=== PATIENT | female | born 1940 | race Caucasian/White ===

== ENCOUNTER → 2016-07-10 | Outpatient (CLI) | payer MEDICARE, OTHER ==
[2016-07-10 14:13] LABS: Basophils % (A) 0 %; CH 29.4; CHCM 32.3; Eosinophils % (A) 1 %; HCT 41.7 % (34.0-46.0); HDW 2.34; HGB 13.7 gm/dL (11.4-16.0); Luc # (Auto) 0.14; Luc % (Auto) 2; Lymphocytes # (A) 1.8 k/uL (1.0-4.8); Lymphocytes % (A) 24 %; MCHC 32.9 g/dL (31.0-37.0); MCV 91.3 fL (80.0-100.0); Mean Platelet Volume 6.6; Monocytes # (A) 0.3 k/uL (0-1.0); Monocytes % (A) 3 %; Neutrophils # (A) 5.2 k/uL (1.3-7.7); Neutrophils % (A) 70 %; RBC 4.57 m/uL (3.80-5.40); RDW 12.5 % (11.5-15.5); WBC 7.5 k/uL (3.8-10.6); WBC (Perox) 8.13
[2016-07-10 14:18] LABS: INR 1.1 (<1.1); Partial Thromboplastin Time 23.5 sec (22.0-30.0); Prothrombin Time 10.7 sec (9.0-12.0)
[2016-07-10 14:37] LABS: ALT 21 U/L (9-52); AST 19 U/L (14-36); Alkaline Phosphatase 78 U/L (38-126); Anion Gap 15 mmol/L; Blood Urea Nitrogen 22 mg/dL (7-17); Calcium 10.2 mg/dL (8.4-10.2); Carbon Dioxide 23 mmol/L (22-30); Chloride 101 mmol/L (98-107); Glucose 99 mg/dL (74-99); Non-African American GFR(MDRD) >60 (>60 ml/min/1.73 sqM); Potassium 4.4 mmol/L (3.5-5.1); Sodium 139 mmol/L (137-145); Total Bilirubin 0.9 mg/dL (0.2-1.3); Total Protein 7.2 g/dL (6.3-8.2)
[2016-07-10 14:46] LABS: Appearance,Urine Clear (Clear); Bilirubin,Urine Negative (Negative); Glucose,Urine (UA) Negative (Negative); Ketones,Urine Negative (Negative); Leukocyte Esterase,Urine Small (Negative); Nitrite,Urine Negative (Negative); PH, Urine 6.5 (5.0-8.0); Particle Count 608; Protein,Urine Negative (Negative); Specific Gravity,Urine 1.007 (1.001-1.035); Squamous Epithelial Cell,Urine <1 /hpf (0-4); UA Billing (MACRO vs. MICRO) MICRO; Urobilinogen,Urine <2.0 mg/dL (<2.0); WBC,Urine 1 /hpf (0-5)
== END | disposition home or self-care (01) ==
LOC: LABPAT 13:41
PROVIDERS: ATTEND Orthopaedic Surgery
DX: Z01.812 Encounter for preprocedural laboratory examination (principal)
CPT/HCPCS: 80053; 81001; 85025; 85610; 85730; 87070

== ENCOUNTER 2016-07-28 06:03 | Inpatient (IN) | payer MEDICARE, OTHER ==
[2016-07-13 15:50] VITALS: BMI 30.2
[~2016-07-28 06:03] MED LIST: DEXAMETHASONE SOD PHOSPHATE 10 MG/ML 1 ML VIAL IV ONE; FAMOTIDINE 20 MG/2 ML VIAL IV PRN; LIDOCAINE 1% 20 ML VIAL (10MG/ML) FOR IV START INTRADERMA PRN; MIDAZOLAM 2 MG/2 ML VIAL IV PRN; ONDANSETRON 4 MG/2 ML VIAL IVP ONE; ceFAZolin 2 GM in SODIUM CHLORIDE 0.9% 100 ML IVPB ONE
[2016-07-28] MEDS: LACTATED RINGERS 1,000 ML IV SCH ×3 (07:00→20:47)
[2016-07-28] MEDS: VANCOMYCIN 1,250 MG in SODIUM CHLORIDE 0.9% 250 ML IVPB ONE ×2 (07:05→07:19)
[2016-07-28] MEDS ORDERED: MIDAZOLAM 2 MG/2 ML VIAL IVP ONE (09:44)
[2016-07-28] MEDS ORDERED: ePHEDrine 50 MG/ML 1 ML AMP ONE (10:26)
[2016-07-28] MEDS ORDERED: fentaNYL (PF) 50 MCG/ML 2 ML AMP ONE (10:26)
[2016-07-28] MEDS ORDERED: PHENYLEPHRINE-0.9% NACL SYG 1 MG/10 ML SYRINGE ONE (10:26)
[2016-07-28] MEDS ORDERED: PROPOFOL 10 MG/ML 20 ML VIAL IV ONE (10:26)
[2016-07-28] MEDS ORDERED: HYDROmorphone (PF) 1 MG/ML ONE (10:26)
[2016-07-28] MEDS ORDERED: LIDOCAINE 1% INJ 10MG/ML (20 ML MDV) ONE (10:26)
[2016-07-28] MEDS ORDERED: MIDAZOLAM 2 MG/2 ML VIAL ONE (10:26)
[2016-07-28] MEDS ORDERED: SUCCINYLCHOLINE CHLORIDE 100 MG/5 ML SYR IV ONE (10:26)
[2016-07-28] MEDS ORDERED: LACTATED RINGERS 1,000 ML IV ONE ×2 (11:06→12:16)
[2016-07-28] MEDS ORDERED: ceFAZolin 3,000 MG in SODIUM CHLORIDE 0.9% IRRIGATIO 3,000 ML IRRIGATION ONE (11:16)
[2016-07-28] MEDS ORDERED: TEMAZEPAM 15 MG CAP PO PRN (12:43)
[2016-07-28] MEDS ORDERED: HYDROmorphone 1 MG/ML 1 ML SYRINGE IVP PRN ×2 (12:43)
[2016-07-28] MEDS ORDERED: BISACODYL 10 MG SUPP RECTAL PRN (12:43)
[2016-07-28] MEDS ORDERED: MAGNESIUM HYDROXIDE 2,400 MG/10 ML CUP PO PRN (12:43)
[2016-07-28] MEDS ORDERED: HYDROcodone/APAP 10-325MG 1 EACH TAB PO PRN (12:43)
[2016-07-28] MEDS ORDERED: NA PHOS,M-B/NA PHOS,DI-BA 133 ML ENEMA RECTAL PRN (12:43)
[2016-07-28] MEDS ORDERED: NALOXONE 0.4 MG/ML 1 ML VIAL IV PRN (12:43)
[2016-07-28] MEDS ORDERED: ONDANSETRON 4 MG/2 ML VIAL IVP PRN (12:43)
--- NOTE | 2016-07-28 13:07 | XR ---
Right knee HISTORY: Status post right knee arthroplasty 2 views of the right knee No comparisons Patient is status post right knee arthroplasty. There is anatomic alignment. Lucency present in the s oft tissues compatible with postop state. Bone mineralization is reduced. IMPRESSION: Orthopedic follow-up
[2016-07-28] MEDS: HYDROmorphone 1 MG/ML 1 ML SYRINGE IVP PRN ×4 (13:44→20:44)
[2016-07-28] MEDS: ceFAZolin 2 GM in SODIUM CHLORIDE 0.9% 100 ML IVPB SCH (15:48)
[2016-07-28] MEDS ORDERED: WARFARIN 5 MG TAB PO ONE (18:00)
[2016-07-28] MEDS: SENNOSIDES-DOCUSATE SODIUM 1 EACH TAB PO SCH (20:37)
[2016-07-28] MEDS: DULoxetine HCL 60 MG CAPSULE.DR PO SCH (20:43)
[2016-07-28] MEDS: PRAMIPEXOLE 0.5 MG TAB PO SCH (20:43)
[2016-07-28] MEDS: AMITRIPTYLINE HCL 50 MG TAB PO SCH (20:43)
[2016-07-28] MEDS: HYDROcodone/APAP 10-325MG 1 EACH TAB PO PRN (22:29)
[2016-07-29] MEDS: LACTATED RINGERS 1,000 ML IV SCH ×4 (00:54→20:16)
[2016-07-29] MEDS: ceFAZolin 2 GM in SODIUM CHLORIDE 0.9% 100 ML IVPB SCH (00:55)
[2016-07-29] MEDS: hydrOXYzine PAMOATE 25 MG CAP PO PRN ×3 (04:56→21:08)
[2016-07-29] MEDS: HYDROcodone/APAP 10-325MG 1 EACH TAB PO PRN ×4 (04:56→21:08)
[2016-07-29] MEDS: PANTOPRAZOLE 40 MG TABLET PO SCH (08:07)
[2016-07-29] MEDS: DULoxetine HCL 60 MG CAPSULE.DR PO SCH ×2 (08:07→20:00)
--- NOTE | 2016-07-29 08:10 | P.PN ---
Subjective Principal diagnosis: Status post right total knee arthroplasty This is a 75 year-old female post total knee arthroplasty. This is post-op day 1. The patient was evaluated at the bedside today. The patient denies nausea, vomiting, abdominal pain, shortness of breath, and chest pain this morning. She states her pain is controlled at this time. The patient has not been up with physical therapy yet this morning. Objective - Vital Signs Vital signs: Vital Signs Temp 98.6 F 07/29/16 07:41 Pulse 102 H 07/29/16 07:41 Resp 16 07/29/16 07:41 BP 146/76 07/29/16 07:41 Pulse Ox 94 L 07/29/16 07:41 Intake & Output 07/28/16 07/29/16 07/29/16 18:59 06:59 18:59 Intake Total 5650 450 Output Total 425 1400 Balance 5225 -950 Weight 74.847 kg Intake: IV 5650 Oral 450 Output: Urine 375 1400 Uretheral (Flores) 1400 Estimated Blood Loss 50 Other: Voiding Method Indwelling Catheter Indwelling Catheter - Exam The patient does not appear in acute distress. Alert and orientated x3. Dressing is clean dry and intact. Incision appears fine with no erythema or active drainage. Calf is soft and nontender. Good foot and ankle motion without difficulty. Sensation and circulatory status is intact. Assessment and Plan (1) Primary localized osteoarthritis of right knee Status: Acute (2) Status post right knee replacement Status: Acute Plan: 1. Continue pain control 2. Anticoagulation with Coumadin per protocol 3. Start physical therapy and ambulation 4. Anticipate discharge home with homecare on Wednesday.
[2016-07-29 08:13] LABS: INR 1.7 (<1.1); Prothrombin Time 16.8 sec (9.0-12.0)
[2016-07-29 08:27] LABS: Basophils % (A) 0 %; CH 28.8; CHCM 31.6; Eosinophils % (A) 0 %; HCT 31.9 % (34.0-46.0); Luc # (Auto) 0.13; Luc % (Auto) 2; Lymphocytes # (A) 1.7 k/uL (1.0-4.8); Lymphocytes % (A) 20 %; MCH 30.8 pg (25.0-35.0); MCHC 33.6 g/dL (31.0-37.0); MCV 91.7 fL (80.0-100.0); Mean Platelet Volume 6.8; Monocytes # (A) 0.5 k/uL (0-1.0); Monocytes % (A) 6 %; Neutrophils % (A) 72 %; RBC 3.48 m/uL (3.80-5.40); RDW 12.8 % (11.5-15.5); WBC 8.4 k/uL (3.8-10.6); WBC (Perox) 8.59
[2016-07-29 08:33] LABS: HGB 10.7 gm/dL (11.4-16.0)
[2016-07-29] MEDS: HYDROmorphone 1 MG/ML 1 ML SYRINGE IVP PRN ×2 (09:28→19:47)
[2016-07-29] MEDS: CHOLECALCIFEROL 1,000 UNIT TAB PO SCH (10:10)
--- NOTE | 2016-07-29 15:20 | CONS ---
DATE OF CONSULTATION: 07/29/2016 Reason for consultation is medical management requested by Dr. Russ. CONSULTATION: This is a very pleasant 75-year-old patient of Dr. Galeas who has undergone a right total knee arthroplasty. Postprocedure, pain is present in the right knee. No chest pain, short of breath, no nausea, vomiting, no dizziness. Patient did tolerate her breakfast. Patient's chronic stable medical conditions include fibromyalgia, GERD, hyperlipidemia, and arthritis of the left knee, sitting up in the bed. REVIEW OF SYSTEMS: CONSTITUTIONAL: None. HEENT: None. RESPIRATORY: None. CARDIOVASCULAR: None. GASTROINTESTINAL: Heartburn. GENITOURINARY: None. MUSCULOSKELETAL: Pain in the joints. DERMATOLOGICAL: None. HEMATOLOGICAL: None. LYMPHATIC: None. PSYCHIATRY: None. NEUROLOGICAL: None. Past history of fibromyalgia, GERD, hyperlipidemia, osteoarthritis, esophageal ulcer. PAST SURGICAL HISTORY: Appendectomy, back surgery, breast surgery, cholecystectomy, hysterectomy, jaw surgery, ( ), back fusion, tendon relief left wrist, several breast biopsies, breast augmentation. SOCIAL HISTORY: No smoking. Alcohol rarely. . Family history of stroke. HOME MEDICATIONS: Zocor 20 mg q.48 hours, Mirapex 0.5 mg p.o. q.h.s., Prilosec 20 mg p.o. with breakfast, [place] 10 one tablet q.6 p.r.n., Cymbalta 60 mg p.o. b.i.d., vitamin D3 two thousand units p.o. daily, Fiorinal 1 to 2 capsules p.o. q.4 p.r.n., Elavil 100 mg p.o. q.h.s. Allergies to CLARITHROMYCIN, RELPAX, GABAPENTIN, MECLOMEN, STADOL, LYRICA, REQUIP. some of these just side effects. On examination, temperature 98.6, pulse 102, respirations 16, blood pressure 146/76, pulse ox 94% on room air. GENERAL APPEARANCE: Average build, lying in bed, not in distress. EYES: Pupils equal. Conjunctivae normal. HEENT: Oral cavity normal. NECK: JVD not raised. Mass not palpable. Respiratory effort normal. Lungs are clear. CARDIOVASCULAR: First and second sounds normal. No edema. ABDOMEN: Soft, nontender. Liver and spleen not palpable. LYMPHATIC: No lymph node palpable in neck or axillae. PSYCHIATRY: Alert and oriented x3. Mood and affect normal. NEUROLOGICAL: Pupils equal. Cranial nerves grossly intact. Power and sensation grossly intact. EXTREMITIES: Right knee in a dressing. MUSCULOSKELETAL: There was also evidence of osteoarthritis in the hands. INVESTIGATIONS: White count 8.4, hemoglobin 10.7. Patient's hemoglobin was 13.7 on 07/10/2016. ASSESSMENT: 1. Right total knee arthroplasty. 2. Chronic fibromyalgia. 3. Gastroesophageal reflux disease. 4. Hyperlipidemia. 5. Primary osteoarthritis in multiple joints, bilateral including the hands. 6. Chronic esophageal ulcer. 7. Acute postoperative blood loss anemia as expected from surgery. 8. Chronic insomnia, idiopathic. 9. Restless leg syndrome. PLAN: Home medications are resumed. DVT prophylaxis, Coumadin as per Dr. uRss. Care was discussed with the patient. Thank you, Dr. Russ.
[2016-07-29] MEDS ORDERED: WARFARIN 5 MG TAB PO ONE (18:00)
--- NOTE | 2016-07-29 18:08 | OP ---
DATE OF SERVICE: 07/28/2016 SURGEON: MIKE HENDRIX DO ASSISTANT PLANT CONTROL OPERATOR: Dipti Rey PA-C PREOPERATIVE DIAGNOSIS: Degenerative joint disease of the right knee. POSTOPERATIVE DIAGNOSIS: Degenerative joint disease of the right knee. OPERATION: Right total knee replacement arthroplasty utilizing [employer] Persona press fit components. ANESTHESIA: PROCEDURE: Patient was taken to the operative suite and placed in supine position. General inhalation anesthesia was performed by the department of anesthesiology. Betadine prep was carried out from mid thigh to mid calf. Sterile drapes were applied in the usual manner. The pneumatic tourniquet was inflated and the medial parapatellar incision was developed. Medial retinaculum was incised. The patella was dislocated and everted laterally and held in a leg santaigo. The intramedullary cutting guide and jig were utilized for appropriate cuts in preparation for a size 5 femoral. Appropriate femoral cuts were then developed. Provisional component was impacted into position. Alignment and stability are noted. Excellent alignment of bone component interface was noted. A tibial cutting guide was brought into position. Appropriate wafer cut was performed. The menisci, both medial and lateral were excised. Tibial tray was selected. The tray was marked for position. Appropriate peg holes were drilled. A 10 mm provisional spacer was inserted and stability noted. The patella was everted, a shelving planer was utilized in preparing for a selected size 32 mm component was selected. Trial component were removed in preparation for final components. With the knee in flexion position, a size 5 right femoral component was impacted in position. The final component were placed in pre-drilled peg holes and impacted. Final size 10 mm polyethylene plate was then inserted and locked into the tibial tray in position. Pneumatic tourniquet was deflated. The knee was irrigated again with pulsavac antibiotic solution. All the superficial bleeding was controlled with electrocautery. Medial retinaculum was reapproximated with #3 Vicryl suture in horizontal mattress fashion. A #2 Quill suture was used for the retinaculum reinforcement. Vicryl 2-0 suture was utilized in approximating the closure of subcutaneous tissue. #3 Quill suture was utilized in subcuticular closure. Dermabond was utilized in sealing the wound. Betadine and sterile pressure dressing was applied. The patient was transferred to the recovery room in satisfactory postoperative condition. GROSS PATHOLOGY: Degenerative joint disease of the right knee. MTDD
[2016-07-29] MEDS: SENNOSIDES-DOCUSATE SODIUM 1 EACH TAB PO SCH (19:54)
[2016-07-29] MEDS: PRAMIPEXOLE 0.5 MG TAB PO SCH (20:00)
[2016-07-29] MEDS: AMITRIPTYLINE HCL 50 MG TAB PO SCH (20:00)
[2016-07-29] MEDS ORDERED: ATORVASTATIN 10 MG TAB PO SCH (21:00)
[2016-07-30] MEDS: hydrOXYzine PAMOATE 25 MG CAP PO PRN ×2 (05:24→13:27)
[2016-07-30] MEDS: HYDROcodone/APAP 10-325MG 1 EACH TAB PO PRN ×2 (05:24→13:27)
[2016-07-30 07:24] VITALS: BP 109/60; PULSE 109; RESP 15; TEMP 99.1
[2016-07-30 07:24] LABS: INR 2.1 (<1.1)
[2016-07-30] MEDS: CHOLECALCIFEROL 1,000 UNIT TAB PO SCH (08:29)
[2016-07-30] MEDS: DULoxetine HCL 60 MG CAPSULE.DR PO SCH (08:29)
[2016-07-30] MEDS: PANTOPRAZOLE 40 MG TABLET PO SCH (08:29)
--- NOTE | 2016-07-30 21:14 | PN ---
DATE OF SERVICE: 07/30/2016 PRESENTING COMPLAINT: Right knee surgery. INTERVAL HISTORY: This patient was seen by me earlier today; doing well. Pain is better controlled. Did work with Physical Therapy. Tolerated her diet. Review of systems done for constitutional, cardiovascular, GI, pulmonary; relevant findings as above. Current medications are reviewed. On examination, temperature 99.1, pulse 109, respiration 15, blood pressure 109/60, pulse ox 94% on room air. GENERAL APPEARANCE: Sitting up, comfortable. EYES: Pupils equal. Conjunctivae normal. NECK: JVD not raised. Mass not palpable. RESPIRATORY: Effort normal. Lungs are clear. CARDIOVASCULAR: First and second sounds normal. No edema. ABDOMEN: Soft, nontender. Liver and spleen not palpable. PSYCHIATRY: Alert and oriented x3. Mood and affect normal. INVESTIGATIONS: Pro time noted. ASSESSMENT: 1. Right total knee arthroplasty. 2. Chronic fibromyalgia. 3. Gastroesophageal reflux disease. 4. Hyperlipidemia. 5. Primary osteoarthritis of multiple joints bilaterally, including the hands. 6. Chronic esophageal ulcer. 7. Acute postoperative blood loss anemia, as expected from surgery. 8. Chronic insomnia, idiopathic. 9. Restless leg syndrome. PLAN: Patient is stable. Continue current medication and treatment plan. Thank you, Dr. Russ.
--- NOTE | 2016-07-31 09:44 | P.DS ---
Providers Date of admission: 07/28/16 06:03 Expected date of discharge: 07/30/16 Attending physician: Cecilio Russ Consults: 07/28/16 12:43 Consult Physician Routine Consulting Provider: Guilherme Mann Consult Reason/Comments: medical management Do you want consulting provider notified?: Yes Primary care physician: Mahendra Galeas - Discharge Diagnosis(es) (1) Primary localized osteoarthritis of right knee Status: Acute (2) Status post right knee replacement Status: Acute Hospital Course: This is a 75 year-old female last seen in our office with complaints of right knee pain. The patient has a known history of degenerative arthritis of the right knee and presented to discuss options. After discussion and consideration the patient elected to proceed with a right total knee arthroplasty. The patient was seen preoperatively by Dr. Galeas and cleared for surgery. The patient was admitted to [facility] on 07/28/2016 and underwent a right total knee arthroplasty by Dr. Russ. The procedure was performed without complications or sequelae. The patient was seen and evaluated at bedside today. The patient's pain is well-controlled. The patient has no new complaints today denies any fevers, chills, nausea, vomiting, or shortness of breath. Vital signs are stable. The dressing is clean, dry and intact. Incision looks fine with no erythema or active drainage. Calf is soft and nontender. The patient has full ankle motion without difficulty. The patient' s right lower extremity is neurovascularly intact. The patient is orthopedically stable for discharge home with homecare today in good condition. Pertinent Studies: Laboratory Tests 07/29/16 07/30/16 07:25 07:08 WBC 8.4 RBC 3.48 L Hgb 10.7 L D Hct 31.9 L PT 20.0 H INR 2.1 Patient Condition at Discharge: Stable Plan - Discharge Summary New Discharge Prescriptions: Aspirin 325 mg PO DAILY #30 tab HYDROcodone/APAP 10-325MG [[place] 10-325] 1 - 2 tab PO Q4-6H PRN #90 tab PRN Reason: Pain Sennosides-Docusate Sodium [Senokot-S] 2 tab PO DAILY #30 tablet Warfarin [Coumadin] 2.5 mg PO DIRECTED #30 tab Discharge Medication List Amitriptyline HCl [Elavil] 100 mg PO HS 07/13/16 [History] Butalb/Asprin/Caff 50-325-40Mg [Fiorinal 50-325-40 MG] 1 - 2 cap PO Q4HR PRN [History] Cholecalciferol [Vitamin D3] 2,000 unit PO DAILY 07/13/16 [History] DULoxetine HCL [Cymbalta] 60 mg PO BID 07/13/16 [History] HYDROcodone/APAP 10-325MG [[place] 10-325] 1 tab PO Q6H PRN 07/13/16 [History] Omeprazole [PriLOSEC] 20 mg PO AC-BRKFST 07/13/16 [History] Pramipexole [Mirapex] 0.5 mg PO HS 07/13/16 [History] Simvastatin [Zocor] 20 mg PO Q48H 07/13/16 [History] Aspirin 325 mg PO DAILY #30 tab 07/30/16 [Rx] HYDROcodone/APAP 10-325MG [[place] 10-325] 1 - 2 tab PO Q4-6H PRN #90 tab [Rx] Sennosides-Docusate Sodium [Senokot-S] 2 tab PO DAILY #30 tablet 07/30/16 [Rx] Warfarin [Coumadin] 2.5 mg PO DIRECTED #30 tab 07/30/16 [Rx] Follow up Appointment(s)/Referral(s): Cecilio Russ DO [Doctor of Osteopathic Medicine] - 08/11/16 1:30 pm [facility], [NON-STAFF] - 1 Week Ambulatory/Diagnostic Orders: Continuous Passive Motion (CPM) Machine [DME.AMB1] Time Frame: 3 Weeks, Location : Determined By Patient Patient Instructions/Handouts: Knee Replacement (DC) Activity/Diet/Wound Care/Special Instructions: Weightbearing as tolerated with a walker Coumadin 2.5 mg 1 by mouth every other day for 7 days then take Aspirin 325mg daily for 1 month CPM 5-6 hours daily May shower in 3 days if no drainage from incision Keep incision clean and dry Coumadin diet Call [facility] [phone] with questions or concerns Call [facility] when you get home to get your CPM delivered to your house 1- [phone] Discharge Disposition: HOME WITH HOME HEALTH SERVICES
== END 2016-07-30 15:50 | disposition home health service (06) | DRG 470 ==
LOC: 2ORMAIN 06:03 → 3SUR 12:39
PROVIDERS: ADMIT Orthopaedic Surgery; ATTEND Orthopaedic Surgery
PROC: 0SRC0JA Replacement of Right Knee Joint with Synthetic Substitute, Uncemented, Open Approach (ICD-10-PCS; principal; 2016-07-28 08:40)
DX: M17.0 Bilateral primary osteoarthritis of knee (principal); D62 Acute posthemorrhagic anemia; K22.10 Ulcer of esophagus without bleeding; E78.5 Hyperlipidemia, unspecified; Z79.899 Other long term (current) drug therapy; K21.9 Gastro-esophageal reflux disease without esophagitis; F51.04 Psychophysiologic insomnia; G25.81 Restless legs syndrome; M79.7 Fibromyalgia; Z82.3 Family history of stroke; Z88.1 Allergy status to other antibiotic agents; Z88.5 Allergy status to narcotic agent; Z88.8 Allergy status to other drugs, medicaments and biological substances
CPT/HCPCS: 85025; 85610; 88300

== ENCOUNTER → 2017-08-24 | Outpatient (CLI) | payer MEDICARE, OTHER ==
[2017-08-24 13:48] LABS: Ionized Calcium 5.2 mg/dL (4.5-5.3)
[2017-08-24 13:52] LABS: Calcium 10.5 mg/dL (8.4-10.2)
== END | disposition home or self-care (01) ==
LOC: CPPFTMAIN 11:58
PROVIDERS: ATTEND Internal Medicine
DX: E21.3 Hyperparathyroidism, unspecified (principal)
CPT/HCPCS: 36415; 82310; 82330; 83970

== ENCOUNTER 2017-09-08 09:38 | Day surgery (SDC) | payer MEDICARE, OTHER ==
[2017-09-06 11:37] VITALS: BMI 31.8
[~2017-09-08 09:38] MED LIST changes: -DEXAMETHASONE SOD PHOSPHATE 10 MG/ML 1 ML VIAL IV ONE; -FAMOTIDINE 20 MG/2 ML VIAL IV PRN; +LACTATED RINGERS 1,000 ML IV SCH; -MIDAZOLAM 2 MG/2 ML VIAL IV PRN; -ONDANSETRON 4 MG/2 ML VIAL IVP ONE; -ceFAZolin 2 GM in SODIUM CHLORIDE 0.9% 100 ML IVPB ONE
[2017-09-08 11:04] VITALS: RESP 16; TEMP 97.9
[2017-09-08] MEDS ORDERED: PROPOFOL 10 MG/ML 20 ML VIAL IV ONE (11:23)
[2017-09-08] MEDS ORDERED: LIDOCAINE 1% INJ 10MG/ML (20 ML MDV) ONE (11:23)
--- NOTE | 2017-09-08 11:45 | P.PCN ---
Date of Procedure: 09/08/17 Procedure(s) Performed: Brief history: Patient is a 77-year-old pleasant white female, scheduled for an elective upper endoscopy as well as colonoscopy as a part of evaluation of long-standing history of GERD and screening for colorectal neoplasia. Procedure performed: Esophagogastroduodenoscopy with biopsy Colonoscopy Preoperative diagnosis: Long-standing history of GERD Ccreening for colon cancer Anesthesia: MAC Procedure: After informed consent was obtained from the patient was brought into the endoscopy unit and IV sedation was administered by anesthesia under continuous monitoring. Initially upper endoscopy was done. The Olympus GF 160 video endoscope was inserted inserted into the mouth and esophagus intubated without any difficulty and was gradually advanced into the stomach and duodenum and carefully examined. The bulb and second part of the duodenum appeared normal. The scope was then withdrawn into the stomach adequately insufflated with air and upon careful examination the antrum had severe gastritis and biopsies were done from this area. The body, cardia and fundus appeared normal. The scope was then withdrawn into the esophagus. Mall. Hiatal hernia noted. The GE junction was located at 38 cm to the incisors. It appeared regular with no erythema erosions or ulcerations. Rest of the esophagus appeared normal. Patient tolerated the procedure well. At this time the patient continued to remain sedation. Initial digital rectal examination was normal. Olympus CF 160 video colonoscope was then inserted into the rectum and gradually advanced to the cecum without any difficulty. Careful examination was performed as the scope was gradually being withdrawn. The prep was excellent. The cecum, ascending colon, transverse colon, descending colon, sigmoid colon and rectum appeared normal. Scattered sigmoidal reticulosis. Retroflexion was performed in the rectum and no lesions were noted. Patient tolerated the procedure well. Impression: 1. Upper endoscopy revealed severe antral gastritis and a small hiatal hernia but no evidence of esophagitis or Loo's esophagus 2. Colonoscopy revealed scattered sigmoid diverticula but no evidence of colorectal neoplasia. Recommendations: Findings of this examination were discussed with the patient as well as her family. She was advised to follow with the biopsy results. She was advised to continue with Prilosec 20 mg daily and follow antireflux measures.
[2017-09-08 12:05] VITALS: BP 141/78; PULSE 98
== END 2017-09-08 12:35 | disposition home or self-care (01) ==
LOC: ORWHC2ENDO 09:38
PROVIDERS: ATTEND Internal Medicine Gastroenterology
DX: Z12.11 Encounter for screening for malignant neoplasm of colon (principal); K29.50 Unspecified chronic gastritis without bleeding; K57.30 Diverticulosis of large intestine without perforation or abscess without bleeding; K44.9 Diaphragmatic hernia without obstruction or gangrene; G89.29 Other chronic pain; Z79.891 Long term (current) use of opiate analgesic; Z79.899 Other long term (current) drug therapy; Z88.8 Allergy status to other drugs, medicaments and biological substances
CPT/HCPCS: 88305; 43239; J2001; J2704; G0121; 45378

== ENCOUNTER → 2017-09-14 | Outpatient (CLI) | payer MEDICARE, OTHER ==
[~2017-09-14] MED LIST changes: +DENOSUMAB 60 MG/ML 1 ML SYRINGE SQ NR; -LACTATED RINGERS 1,000 ML IV SCH; -LIDOCAINE 1% 20 ML VIAL (10MG/ML) FOR IV START INTRADERMA PRN
[2017-09-14 13:21] VITALS: BP 126/80; PULSE 97; RESP 14; TEMP 98.2
== END | disposition home or self-care (01) ==
LOC: PROCWHC3 13:00
PROVIDERS: ATTEND Internal Medicine
DX: M81.0 Age-related osteoporosis without current pathological fracture (principal)
CPT/HCPCS: 96372; J0897

== ENCOUNTER → 2019-05-27 | Outpatient (CLI) | payer MEDICARE, OTHER ==
[2019-05-27 11:28] LABS: Basophils % (A) 0 %; Eosinophils # (A) 0.1 k/uL (0-0.7); Eosinophils % (A) 2 %; HCT 39.1 % (34.0-46.0); HGB 12.6 gm/dL (11.4-16.0); Lymphocytes # (A) 1.4 k/uL (1.0-4.8); Lymphocytes % (A) 18 %; MCH 29.6 pg (25.0-35.0); MCHC 32.3 g/dL (31.0-37.0); MCV 91.7 fL (80.0-100.0); Mean Platelet Volume 7.2; Monocytes # (A) 0.2 k/uL (0-1.0); Monocytes % (A) 3 %; Neutrophils # (A) 5.6 k/uL (1.3-7.7); Neutrophils % (A) 75 %; Platelet Count 290 k/uL (150-450); RBC 4.27 m/uL (3.80-5.40); RDW 12.6 % (11.5-15.5); WBC 7.4 k/uL (3.8-10.6)
[2019-05-27 18:54] LABS: % Iron Saturation 16.25 (12.00-45.00); African American GFR (CKD) 82.4 (60.0-200.0); Albumin 4.3 g/dL (3.80-4.90); Albumin/Globulin Ratio 3.07 (1.60-3.17); Anion Gap 5.8 mmol/L (4.00-12.00); Calcium 9.3 mg/dL (8.7-10.3); Carbon Dioxide 27.2 mmol/L (21.6-31.8); Chol/HDL Ratio 4.18; Globulin 1.4 g/dL (1.6-3.3); LDL Cholesterol,Calculated 163.6 mg/dL (0.0-131.0); Non-African American GFR(CKD) 71.1 (60.0-200.0); Potassium 4.7 mmol/L (3.5-5.5); Total Bilirubin 0.4 mg/dL (0.3-1.2); Total Protein 5.7 g/dL (6.2-8.2); VLDL Calculation 14.4 mg/dL (5.00-40.00)
[2019-05-27 19:04] LABS: Ferritin 31.1 ng/mL (10.0-291.0)
== END | disposition home or self-care (01) ==
LOC: LABWHC1 10:43
PROVIDERS: ATTEND Psychiatry & Neurology Neurology
DX: G25.81 Restless legs syndrome (principal); K21.9 Gastro-esophageal reflux disease without esophagitis; E78.5 Hyperlipidemia, unspecified; E21.3 Hyperparathyroidism, unspecified; H53.2 Diplopia
CPT/HCPCS: 36415; 80053; 80061; 82306; 82728; 83519; 83540; 83550; 83970; 84443; 85025; 86255

== ENCOUNTER → 2020-03-07 | Outpatient (CLI) | payer MEDICARE, OTHER ==
[2020-03-07 10:25] VITALS: BP 138/81; PULSE 92; RESP 16; TEMP 98
--- NOTE | 2020-03-07 10:39 | P.PAINCN ---
History of Present Illness - Reason for Consult Consult date: 03/07/20 - History of Present Illness This is a 79-year-old patient is a previous vision Dr. Barrow and has been referred by Dr. Johnson for bilateral low back pain. Pain is located on the mid to lower low back worse on the right side described as tender and aching. Pain is worse with activity and she is unable to lie on her left side. Also endorses some numbness and tingling in bilateral lateral aspects of the hip which she says is not new. Currently a 7 out of 10, at its worst a 10 out of 10, at its best a 3 out of 10. In terms of management Takes Cymbalta 60 mg QD, amitryptiline 50 mg, Celebrex 20 0 mg QD and [place] 10 mg QID which she says helps some. She has had an L4-L5 fusion in 2010. She has had bilateral lumbar RFA's L2-L5 in the past most recently on 09/2019 where there was 90% improvement of her symptoms. She also recently had L5 bilateral TFESI on 01/2020 with 100% relief of her pain for only 3 days. Overall RFAs have helped her the most. She has undergone other epidurals which she said di not help. In addition to above, 13-point review of systems is also negative for chest pain, shortness of breath, changes in vision, changes in hearing, new onset weakness, abdominal pain, diarrhea, extreme fatigue, malaise, fever, skin changes, homicidal or suicidal ideation, or bowel or bladder incontinence. Physical exam: Vital Signs: Reviewed in EMR GENERAL: Well appearing, in no acute distress PSYCH: Mood and affect is appropriate. Awake, alert, and oriented SKIN: Skin color, texture, turgor normal, no rashes or lesions HEENT: Normocephalic, atraumatic. EOM intact CV: No pedal edema RESP: Respirations are unlabored, no audible wheezing GI: Abdomen non-distended MUSCULOSKELETAL: 5/5 hip flexion and extension, 4/5 knee extension and flexion bilaterally, 4/5 bilateral EHL.. No atrophy or tone abnormalities are noted. TTP over lumbar paraspinal muscles. Lumbar spine: Straight leg raising in the sitting position is negative for radicular pain. N pain to palpation over the lumbar spine and paraspinous muscles. Positive for pain with facet loading and back extension/rotation. Normal flexion, decreased lumbar extension Buttocks: No pain to palpation over the PSIS, Daniel test is negative Extremities: Peripheral joint ROM is full and pain free without obvious instability or laxity in all four extremities. No edema or skin discolorations noted. Gait: Gait is normal NEUR: Bilateral upper and lower extremity coordination and muscle stretch reflexes are physiologic and symmetric. Negative clonus. No loss of sensation is noted. Cranial nerves are grossly intact. Imaging: EMG was done in 2017 which showed no evidence of lumbar radiculopathy plexopathy or neuropathy. MRI of the lumbar spine was done in 2017 which showed grade 1 L4 to L5 spondylolisthesis and moderate to severe right and moderate left foraminal stenosis at that level. Assessment: 1. Lumbar facet arthropathy 2. Chronic opioid use Plan: 1. Explanation: Diagnoses, prognoses, and multiple treatment options including but not limited to physical therapy, interventional therapies, medication management and surgery were discussed with the patient and all questions were answered to the patient's satisfaction. 2. Investigations: None, Consider lumbar MRI in the future if our RFA are not helpful. She is on an MRI in our chart since 2017 3. Counseling: The patient was counseled for 3 minutes on SMOKING CESSATION, BODY MASS INDEX, EXERCISE. Specifically, the patient was instructed regarding the importance of smoking cessation, weight control, and exercise in the context of both chronic pain and overall health. 4. Procedures: Visual her for right-sided RFA at L3-L4, L4-5, L5-S1. She has had bilateral RFA's done in the past, however insurances do not cover more than 4 joints bilaterally. She would like to do the side that hurts the most at this time which is the right side. She is also going to [place] at the end of March and will be there till the end of June. 5. Consultations: Recommended PT to her in the future. 6. Medications: Continue current medication regimen 7. Disposition: For lumbar RFA Past Medical History Past Medical History: Fibromyalgia, GERD/Reflux, Hyperlipidemia, Osteoarthritis (OA) Additional Past Medical History / Comment(s): hx esophagus ulcer, migraine, chr onic pain History of Any Multi-Drug Resistant Organisms: None Reported Past Surgical History: Appendectomy, Back Surgery, Breast Surgery, Cholecystect derek, Hysterectomy Additional Past Surgical History / Comment(s): jaw surg., heel spurs, back fusion, pain procedures, tendon release left wrist, several breast biopsies, breast augmentation. BACK PROCEDURES. Past Anesthesia/Blood Transfusion Reactions: Postoperative Nausea & Vomiting (PONV) Additional Past Anesthesia/Blood Transfusion Reaction / Comm: one episode of n/v Past Psychological History: No Psychological Hx Reported Past Alcohol Use History: Rare Past Drug Use History: None Reported - Past Family History Mother Family Medical History: CVA/TIA Medications and Allergies Home Medications Medication Instructions Recorded Confirmed Type Butalb/Asprin/Caff 50-325-40Mg 1 - 2 cap PO Q4HR PRN 07/13/16 03/07/20 History [Fiorinal 50-325-40 MG] Cholecalciferol [Vitamin D3] 2,000 unit PO DAILY 07/13/16 03/07/20 History DULoxetine HCL [Cymbalta] 60 mg PO BID 07/13/16 03/07/20 History Omeprazole [PriLOSEC] 20 mg PO AC-BRKFST 07/13/16 03/07/20 History Rutmltd-Xrnm-Pcpk [id number] 2 each PO Q4HR PRN 09/06/17 03/07/20 History [Excedrin] HYDROcodone/APAP 10-325MG [[place] 1 - 2 tab PO BID 09/06/17 03/07/20 History 10-325] ARIPiprazole 5 mg PO HS 03/07/20 03/07/20 History Amitriptyline HCl 50 mg PO HS 03/07/20 03/07/20 History Aspirin [Adult Low Dose Aspirin EC] 81 mg PO DAILY 03/07/20 03/07/20 History Celecoxib [CeleBREX] 200 mg PO BID 03/07/20 03/07/20 History Magnesium Oxide 400 mg PO HS 03/07/20 03/07/20 History Multivitamin [Once Daily] 1 each PO DAILY 03/07/20 03/07/20 History Allergies Allergy/AdvReac Type Severity Reaction Status Date / Time clarithromycin [From Biaxin] Allergy Rash/Hives Verified 03/07/20 10:04 eletriptan [From Relpax] Allergy Rash/Hives Verified 03/07/20 10:04 gabapentin [From Neurontin] Allergy Hallucinati Verified 03/07/20 10:04 ons meclofenamic acid Allergy Rash/Hives Verified 03/07/20 10:04 [From Meclomen] butorphanol [From Stadol] AdvReac elevated Verified 03/07/20 10:04 blood pressure pregabalin [From Lyrica] AdvReac worsened Verified 03/07/20 10:04 pain ropinirole [From Requip] AdvReac worsened Verified 03/07/20 10:04 pain PQRS Measure Charge Sheet PQRS Narrative: Smoking Status Never smoker Home Medications: Ambulatory Orders Butalb/Asprin/Caff 50-325-40Mg [Fiorinal 50-325-40 MG] 1 - 2 cap PO Q4HR PRN 07/13/16 Cholecalciferol [Vitamin D3] 2,000 unit PO DAILY 07/13/16 DULoxetine HCL [Cymbalta] 60 mg PO BID 07/13/16 Omeprazole [PriLOSEC] 20 mg PO AC-BRKFST 07/13/16 [place]-Sjgj-Emfp [id number] [Excedrin] 2 each PO Q4HR PRN 09/06/17 HYDROcodone/APAP 10-325MG [[place] 10-325] 1 - 2 tab PO BID 09/06/17 ARIPiprazole 5 mg PO HS 03/07/20 Amitriptyline HCl 50 mg PO HS 03/07/20 Aspirin [Adult Low Dose Aspirin EC] 81 mg PO DAILY 03/07/20 Celecoxib [CeleBREX] 200 mg PO BID 03/07/20 Magnesium Oxide 400 mg PO HS 03/07/20 Multivitamin [Once Daily] 1 each PO DAILY 03/07/20
== END | disposition home or self-care (01) ==
LOC: PNWHC3 09:55
PROVIDERS: ATTEND Anesthesiology
DX: M47.816 Spondylosis without myelopathy or radiculopathy, lumbar region (principal); K21.9 Gastro-esophageal reflux disease without esophagitis; M19.90 Unspecified osteoarthritis, unspecified site; M79.7 Fibromyalgia; G43.909 Migraine, unspecified, not intractable, without status migrainosus; F11.90 Opioid use, unspecified, uncomplicated; Z79.899 Other long term (current) drug therapy; Z79.82 Long term (current) use of aspirin; Z79.1 Long term (current) use of non-steroidal anti-inflammatories (NSAID); Z88.1 Allergy status to other antibiotic agents; Z88.8 Allergy status to other drugs, medicaments and biological substances
CPT/HCPCS: 99211

== ENCOUNTER → 2020-04-03 | Outpatient (CLI) | payer MEDICARE, OTHER ==
[2020-04-03 15:25] LABS: Basophils % (A) 1 %; Eosinophils # (A) 0.3 k/uL (0-0.7); Eosinophils % (A) 4 %; HCT 39.7 % (34.0-46.0); Lymphocytes # (A) 2.4 k/uL (1.0-4.8); Lymphocytes % (A) 37 %; MCH 30.3 pg (25.0-35.0); MCHC 32.8 g/dL (31.0-37.0); MCV 92.3 fL (80.0-100.0); Monocytes # (A) 0.3 k/uL (0-1.0); Monocytes % (A) 4 %; Neutrophils # (A) 3.4 k/uL (1.3-7.7); Neutrophils % (A) 52 %; Platelet Count 317 k/uL (150-450); RDW 12.6 % (11.5-15.5); WBC 6.5 k/uL (3.8-10.6)
[2020-04-03 15:28] LABS: Ionized Calcium 5.5 mg/dL (4.5-5.3)
[2020-04-04 02:19] LABS: African American GFR (CKD) 62.5 (60.0-200.0); Albumin 4.8 g/dL (3.80-4.90); Anion Gap 5.9 mmol/L (4.00-12.00); Calcium 10.2 mg/dL (8.7-10.3); Carbon Dioxide 29.1 mmol/L (21.6-31.8); Chol/HDL Ratio 4.5; Globulin 1.6 g/dL (1.6-3.3); LDL Cholesterol,Calculated 177.8 mg/dL (0.0-131.0); Non-African American GFR(CKD) 53.9 (60.0-200.0); Total Bilirubin 0.4 mg/dL (0.3-1.2); Total Protein 6.4 g/dL (6.2-8.2); VLDL Calculation 32.2 mg/dL (5.00-40.00)
== END | disposition home or self-care (01) ==
LOC: LABWHC1 14:46
PROVIDERS: ATTEND Internal Medicine
DX: E78.5 Hyperlipidemia, unspecified (principal); K21.9 Gastro-esophageal reflux disease without esophagitis; G47.9 Sleep disorder, unspecified; E55.9 Vitamin D deficiency, unspecified; E21.3 Hyperparathyroidism, unspecified
CPT/HCPCS: 36415; 80053; 80061; 82306; 82330; 83970; 84443; 85025

== ENCOUNTER 2020-12-13 11:55 | Day surgery (SDC) | payer MEDICARE, OTHER ==
[2020-12-11 09:45] VITALS: BMI 34.0
[~2020-12-13 11:55] MED LIST changes: -DENOSUMAB 60 MG/ML 1 ML SYRINGE SQ NR; +LACTATED RINGERS 1,000 ML IV SCH; +LIDOCAINE 1% (10MG/ML) FOR IV START INTRADERMA PRN
[2020-12-13 12:23] VITALS: TEMP 97.1
[2020-12-13] MEDS ORDERED: LIDOCAINE 1% (10MG/ML) FOR IV START INTRADERMA ONE (12:30)
[2020-12-13] MEDS ORDERED: MIDAZOLAM 2 MG/2 ML VIAL ONE (12:43)
[2020-12-13] MEDS ORDERED: fentaNYL (PF) 50 MCG/ML 2 ML AMP ONE (12:43)
--- NOTE | 2020-12-13 13:12 | P.PCN ---
Date of Procedure: 12/13/20 Procedure(s) Performed: PREOPERATIVE DIAGNOSIS: 1-Lumbar Spondylosis with Facet Arthropathy without myelopathy. POSTOPERATIVE DIAGNOSIS: 1- Lumbar Spondylosis with Facet Arthropathy without myelopathy. PROCEDURES : Right Radiofrequency thermocoagulation,L2 , L3 , L4 , and L5 medial branch, with fluoroscopic guidance (fluoroscopy images available in the radiology department) ( to denervate the facet joint at Right L3-4 , L4-5 ,and L5-S1 levels ). ANESTHESIA: monitered anesthesia care as per anesthesia department . EBL: Minimal PROCEDURE INDICATION: The patient with low back pain secondary to lumbar facet arthropathy who had more than 50% relief of her pain with previous diagnostic lumbar medial branch block with bupivacaine. PROCEDURE DESCRIPTION / TECHNIQUE: The patient was seen and identified in the preoperative area. Risks, benefits, complications, including but not limited to risk of infection ,bleeding , allergic reactions to the medications and no complete pain releife , and alternatives were discussed with the patient, the patient agreed to proceed with the procedure and signed the consent. IV was started. Vital signs remained stable throughout the procedure. Patient was taken to the OR and time out was completed. The patient was placed in the prone position on the procedure table. The lumber area was prepped and draped in the usual sterile fashion. . Vital signs were closely monitored during the procedure .IV sedation was used during the procedure to decrease patients anxiety. Using AP and then oblique fluoroscopy, the ``eye of the [place] dog corresponding to the connection between the superior and transverse articular processes of right L2 ,L3, L4, and L5 were identified, marked, and localized with 1% lidocaine. Subsequently, a [id number] radiofrequency cannula with a 10-mm active tip was advanced guided by fluoroscopy to each of the``eyes of the [place] dog at right L2 , L3, L4, and L5. Each site then underwent sensory testing at 50 Hz and 0 to 1 volt and motor testing at 2.5 Hz and 0 to 3 volt with local stimulation, but no radicular symptoms down the legs. Thereafter each sites underwent radiofrequency thermocoagulation at 80 degrees celsius for 90 seconds after injecting 0.5 ml of PF Ropivacaine 1ml, then after the thermocoagulation done , 1 ml of the block solution containing Depo-Medrol 40 mg and 3 ml of Ropivacaine 0.5% was injected at the right L2 , L3 , L4 , and L5 , levels after negative aspiration of CSF and blood and with no paresthesias. Cannulas were retracted while injecting lidocaine 1% until the needle is out. At the end of the procedure, the skin was cleansed and bandages were applied. COMPLICATIONS: No acute complications. DISPOSITION / PLANS: The patient was placed in a supine position and transferred to the recovery area in a stable condition for observation and was discharged from the recovery room after meeting discharge criteria. Home discharge instructions given to the patient by the staff. The patient was reexamined prior to discharge. The patient will schedule a follow up in the clinic in 2-4 weeks.
[2020-12-13] MEDS ORDERED: IV FLUID CONTINUATION 600 ML IV ONE (13:13)
--- NOTE | 2020-12-13 13:17 | FL ---
EXAMINATION TYPE: FL guided pain mgmt statistic DATE OF EXAM: 12/13/2020 HISTORY: Fluoroscopy time 14 seconds of fluoroscopy provided. IMPRESSION: 1. Fluoroscopy time.
[2020-12-13 13:31] VITALS: BP 109/72; PULSE 86; RESP 16
[2020-12-13] MEDS ORDERED: methylPREDNISolone ACETATE 40 MG/ML 1 ML VIAL ONE (18:41)
[2020-12-13] MEDS ORDERED: ROPIVACAINE 5MG/ML 20ML VIAL ONE (18:41)
== END 2020-12-13 13:43 | disposition home or self-care (01) ==
LOC: ORPAIN 11:55
PROVIDERS: ATTEND Specialist
DX: M47.816 Spondylosis without myelopathy or radiculopathy, lumbar region (principal); M79.7 Fibromyalgia; K21.9 Gastro-esophageal reflux disease without esophagitis; Z79.82 Long term (current) use of aspirin; Z79.899 Other long term (current) drug therapy; Z88.1 Allergy status to other antibiotic agents; Z88.8 Allergy status to other drugs, medicaments and biological substances
CPT/HCPCS: 64635; 64636; J2250; J1030; J3010; J2795

== ENCOUNTER → 2021-01-08 | Outpatient (CLI) | payer MEDICARE, OTHER ==
[2021-01-08 09:57] VITALS: BP 147/87; PULSE 113; RESP 18; TEMP 98.4
--- NOTE | 2021-01-08 10:04 | P.PN ---
Progress Note - Text Progress Note Date: 01/08/21 Mrs. follow visit for this 80 years old female with a chronic history of severe low back pain, recently we have done right side are free of the medial branch lumbar area, she is her follow-up visit she reported that her pain improved more than 90% , he denies any motor or sensory deficits she is started with the treatment results and she will follow up with the pain clinic when necessary
== END | disposition home or self-care (01) ==
LOC: PNWHC3 09:46
PROVIDERS: ATTEND Specialist
DX: M54.5 Low back pain (principal)
CPT/HCPCS: 99211

== ENCOUNTER → 2022-02-09 | Outpatient (CLI) | payer MEDICARE, OTHER ==
[2022-02-09 14:01] VITALS: BP 131/74; PULSE 101; RESP 18; TEMP 98.7
--- NOTE | 2022-02-09 14:54 | P.PAINPG ---
Objective - Vital Signs Vital signs: Vital Signs Temp 98.7 F 02/09/22 13:55 Pulse 101 H 02/09/22 13:55 Resp 18 02/09/22 13:55 BP 131/74 02/09/22 13:55 Pulse Ox 96 02/09/22 13:55 FiO2 Intake & Output 02/08/22 02/09/22 02/09/22 18:59 06:59 18:59 Weight 76.204 kg PQRS Measure Charge Sheet Mode of Arrival: Ambulatory Comment: A 81 yr old female with a history of severe and chronic low back pain seconda ry to lumbar degenerative disc diseases and lumbar spondylosis with facet arthropathy without myelopathy presents today for LBP evaluation. Pain level is currently at 6/10 in intensity, constant, localized in the R lower lumbar spine, dull in character w shooting towards the R thigh. Pain is provoked by standing/ walking for periods of 10 min or more, or lifting. Pain is alleviated with PT w massage x 4 wks in 2020, heat, medications ([place]), topicals, repositioning and rest. Patient is currently on [place], topicals Patient denies any side effects of the medication(s), denies excessive drowsi ness or sleepiness, denies suicidal ideation and reports that the current pain medication is helping to control the pain and improve activities of daily living. Patient denies any motor or sensory deficits. Patient denies any fever or night sweats, denies any change in the bowel movements or urination. Physical Examination: -Constitutional: Cooperative. Not in acute distress . - Neurologic: Cranial nerve II to XII intact. No focal neurological deficits. - Psychatric: Alert & oriented x 3. Matching mood & appropriate affect. Judgment and insight intact. - Musculoskeletal: Cervical spine: Muscle bulk/ tone/ strength in the bilateral upper extremities normal Vertebral body tenderness to palpation over Spurling test positive Distraction test positive Facet loading test positive Thoracic spine Muscle bulk / tone/ strength in the bilateral paraspinal muscles normal Vertebral body tender to palpation over Facet loading test positive Lumbar spine: Motor bulk/ tone/ strength lower extremities , thigh and legs : 5/5 Deep tendon reflexes : Normal Knee Jerk. Normal Ankle Jerk . Vertebral body tenderness to palpation over Lumbar Facet Loading Test positive over BL L4-L5, L5-S1 w jump reflex over palpation of facets Straight Leg Raise: positive at 30 degrees right side/ left side Gaenslen's Test positive Sacral spine : Severe tenderness over the Sacroiliac joint: right side / left side Range of motion: Flexion of the lumbar spine <60 degrees Range of motion: Extension of the lumbar spine <20 degrees Gaenslen's Test positive Evangelista's Test positive Daniel test: positive right side / left side Thigh Thrust Test Sacral Thrust Test Assessment and plan: Chronic low back pain secondary to lumbar degenerative disc disease , lumbar spondylosis with facet arthropathy without myelopathy Recommendation of BL RFA L4-L5, L5-S1. Patient has had the procedure approximately 1 one half year ago and admits to 75% pain relief x 8 mo s/p procedure. Risks, benefits of procedure discussed and pt verbalized understanding. Admits to anticoagulant use or medical history of diabetes. Protocol for discontinuation/ continuation of medications waldemar procedure discussed. All patient questions answered I have spent less than 30 minutes on patient care today. Dr Grace was available by phone for the evaluation of this patient. The time was used to review the medical records including relevant urine studies and Prescription history (MAPs), review of the available imaging, evaluation and examination of the patient, coordination of care with the medical staff and if applicable referring physicians, as well as creation of the medical record - Pain Location Right Lower Back Non-Pharmacological Interventions: Heat, Inactivity, Massage, Physical Therapy, Sitting Pharmacological Interventions: Scheduled Medication, Topical Medication PQRS Narrative: Smoking Status Never smoker Blood Pressure 131/74 Pain Intensity [Right Lower 6 Back] Scale Used Numeric (1 - 10) Home Medications: Ambulatory Orders Butalb/Asprin/Caff 50-325-40Mg [Fiorinal 50-325-40 MG] 1 - 2 cap PO Q4HR PRN 07/13/16 Cholecalciferol [Vitamin D3] 2,000 unit PO DAILY 07/13/16 DULoxetine HCL [Cymbalta] 60 mg PO BID 07/13/16 Omeprazole [PriLOSEC] 20 mg PO AC-BRKFST 07/13/16 Klpejkz-Akaz-Gyjm [id number] [Excedrin] 2 each PO Q4HR PRN 09/06/17 ARIPiprazole 7.5 mg PO HS 03/07/20 Amitriptyline HCl 50 mg PO HS 03/07/20 Aspirin [Adult Low Dose Aspirin EC] 81 mg PO DAILY 03/07/20 Celecoxib [CeleBREX] 200 mg PO BID 03/07/20 Multivitamin [Once Daily] 1 each PO DAILY 03/07/20 Cannabidiol (Cbd) [Epidiolex] 1 dose TOPICAL DAILY PRN 12/11/20 HYDROcodone/APAP 5-325MG [[place] 5-325] 1 tab PO HS 12/11/20 Calcium Carbonate [Calcium] 600 mg PO DAILY 01/07/21 Controlled Substance Measures - Controlled Substance Measures Is patient prescribed a controlled substance at discharge?: No
== END ==
LOC: PNWHC3 13:06
PROVIDERS: ATTEND Specialist
DX: M47.816 Spondylosis without myelopathy or radiculopathy, lumbar region (principal); M51.36 Other intervertebral disc degeneration, lumbar region; G89.29 Other chronic pain; Z79.01 Long term (current) use of anticoagulants; E11.9 Type 2 diabetes mellitus without complications; Z79.4 Long term (current) use of insulin; Z88.6 Allergy status to analgesic agent; Z88.8 Allergy status to other drugs, medicaments and biological substances; Z88.1 Allergy status to other antibiotic agents; Z88.5 Allergy status to narcotic agent
CPT/HCPCS: 99211

== ENCOUNTER 2022-03-20 06:15 | Day surgery (SDC) | payer MEDICARE, OTHER ==
[2022-03-18 10:07] VITALS: BMI 31.1
[2022-03-20] MEDS ORDERED: LACTATED RINGERS 1,000 ML IV SCH (06:24)
[2022-03-20] MEDS ORDERED: LIDOCAINE 1% (10MG/ML) FOR IV START INTRADERMA PRN (06:24)
[2022-03-20 06:43] VITALS: TEMP 97.3
[2022-03-20] MEDS ORDERED: LIDOCAINE 1% (10MG/ML) FOR IV START INTRADERMA ONE (06:48)
[2022-03-20] MEDS ORDERED: fentaNYL (PF) 50 MCG/ML 2 ML AMP ONE (07:00)
[2022-03-20] MEDS ORDERED: methylPREDNISolone ACETATE 40 MG/ML 1 ML VIAL ONE (07:00)
[2022-03-20] MEDS ORDERED: MIDAZOLAM 2 MG/2 ML VIAL ONE (07:00)
[2022-03-20] MEDS ORDERED: ROPIVACAINE 5 MG/ML 20 ML AMPULE ONE (07:00)
[2022-03-20] MEDS ORDERED: LACTATED RINGERS 1,000 ML IV ONE (07:34)
[2022-03-20] MEDS ORDERED: IV FLUID CONTINUATION 1,000 ML IV ONE (07:34)
[2022-03-20 07:38] VITALS: RESP 16
--- NOTE | 2022-03-20 07:39 | P.PCN ---
Date of Procedure: 03/20/22 Procedure(s) Performed: PREOPERATIVE DIAGNOSIS: 1-Lumbar Spondylosis with Facet Arthropathy without myelopathy. POSTOPERATIVE DIAGNOSIS: 1- Lumbar Spondylosis with Facet Arthropathy without myelopathy. PROCEDURES : bilatereal Radiofrequency thermocoagulation,L2 , L3 , L5 medial branch, with fluoroscopic guidance (fluoroscopy images available in the radiology department) ( to denervate the facet joint at Bilateral L3-4 , L5- S1 levels ). ANESTHESIA: monitered anesthesia care as per anesthesia department . EBL: Minimal PROCEDURE INDICATION: The patient with low back pain secondary to lumbar facet arthropathy who had more than 50% relief of her pain with previous diagnostic lumbar medial branch block with bupivacaine. PROCEDURE DESCRIPTION / TECHNIQUE: The patient was seen and identified in the preoperative area. Risks, benefits, complications, including but not limited to risk of infection ,bleeding , allergic reactions to the medications and no complete pain releife , and alternatives were discussed with the patient, the patient agreed to proceed with the procedure and signed the consent. IV was started. Vital signs remained stable throughout the procedure. Patient was taken to the OR and time out was completed. The patient was placed in the prone position on the procedure table. The lumber area was prepped and draped in the usual sterile fashion. . Vital signs were closely monitored during the procedure .IV sedation was used during the procedure to decrease patients anxiety. Using AP and then oblique fluoroscopy, the ``eye of the [place] dog corresponding to the connection between the superior and transverse articular processes of right L2 ,L3, L4, and L5 were identified, marked, and localized with 1% lidocaine. Subsequently, a [id number] radiofrequency cannula with a 10-mm active tip was advanced guided by fluoroscopy to each of the``eyes of the Parish dog at right L2, L3, and L5. Each site then underwent sensory testing at 50 Hz and 0 to 1 volt and motor testing at 2.5 Hz and 0 to 3 volt with local stimulation, but no radicular symptoms down the legs. Thereafter each sites underwent radiofrequency thermocoagulation at 80 degrees celsius for 90 seconds after injecting 0.5 ml of PF Ropivacaine 1ml, then after the thermocoagulation done , 1 ml of the block solution containing Depo-Medrol 20 mg and 3 ml of Ropivacaine 0.5% was injected at the right L2 , L3 , and L5 , levels after negative aspiration of CSF and blood and with no paresthesias. Cannulas were retracted while injecting lidocaine 1% until the needle is out. Then the exact same procedure was done for the left side at L2, L3 and L5 At the end of the procedure, the skin was cleansed and bandages were applied. COMPLICATIONS: No acute complications. DISPOSITION / PLANS: The patient was placed in a supine position and carmona sferred to the recovery area in a stable condition for observation and was discharged from the recovery room after meeting discharge criteria. Home discharge instructions given to the patient by the staff. The patient was reexamined prior to discharge. The patient will schedule a follow up in the clinic in 2-4 weeks. note= had a fusion at L4-L5 for this reason the procedure done at L3 4 and L5-S1 (above and below the fusion level )
[2022-03-20 07:50] VITALS: BP 105/72; PULSE 90
--- NOTE | 2022-03-20 08:49 | FL ---
EXAMINATION TYPE: FL guided pain mgmt statistic DATE OF EXAM: 03/20/2022 CLINICAL HISTORY: Low back pain. TECHNIQUE: Fluoroscopy. COMPARISON: None. FINDINGS: Fluoroscopic guidance was provided during pain relief procedure performed by Dr. Grace . A total of 11 seconds of fluoroscopic time was utilized during the procedure and 6 spot images are acquired. Images acquired shows needle localization at several levels in the lumbar spine with surg ical change noted L4-L5 level. IMPRESSION: As Above.
== END 2022-03-20 08:19 | disposition home or self-care (01) ==
LOC: ORPAIN 06:15
PROVIDERS: ATTEND Specialist
DX: M47.816 Spondylosis without myelopathy or radiculopathy, lumbar region (principal); Z98.1 Arthrodesis status; E78.5 Hyperlipidemia, unspecified; K21.9 Gastro-esophageal reflux disease without esophagitis; Z90.49 Acquired absence of other specified parts of digestive tract; Z98.890 Other specified postprocedural states; Z79.899 Other long term (current) drug therapy; Z79.891 Long term (current) use of opiate analgesic; Z79.82 Long term (current) use of aspirin; Z79.1 Long term (current) use of non-steroidal anti-inflammatories (NSAID)
CPT/HCPCS: 64635; 64636; J2250; J1030; J3010; J2795

== ENCOUNTER → 2022-04-06 | Outpatient (CLI) | payer MEDICARE, OTHER ==
[2022-04-06 12:31] VITALS: BP 143/82; PULSE 101; RESP 18
--- NOTE | 2022-04-06 15:02 | P.PAINPG ---
PQRS Measure Charge Sheet Comment: A 81 yr old female with a history of severe and chronic low back pain secondary to lumbar DDD and spondylosis with facet arthropathy without myelopathy presents today for evaluation s/p BL RFA L3-L4, L5-S1. Pt states she experienced 100 % pain relief s/p procedure. Pain level is currently at 0 /10 in intensity, constant, localized in the lower lumbar spine, achy in character w shooting towards the BLEs. Pain is provoked by standing/ walking for periods of 25 min or more. Pain is alleviated with heat, meds ([place]), reclining and laying supine. Interventional pain procedures completed include BL RFA L3-4 & L5-S1 Patient is currently on [place] Patient denies any side effects of the medication(s), denies excessive drowsiness or sleepiness, denies suicidal ideation and reports that the current pain medication is helping to control the pain and improve activities of daily living. Patient denies any motor or sensory deficits. Patient denies any fever or night sweats, denies any change in the bowel movements or urination. Physical Examination: -Constitutional: Cooperative. Not in acute distress . - Neurologic: Cranial nerve II to XII intact. No focal neurological deficits. - Psychatric: Alert & oriented x 3. Matching mood & appropriate affect. Judgment and insight intact. - Musculoskeletal: Cervical spine: Muscle bulk/ tone/ strength in the bilateral upper extremities normal Vertebral body tenderness to palpation over Spurling test positive Distraction test positive Facet loading test positive Thoracic spine Muscle bulk / tone/ strength in the bilateral paraspinal muscles normal Vertebral body tender to palpation over Facet loading test positive Lumbar spine: Motor bulk/ tone/ strength lower extremities , thigh and legs : 5/5 Deep tendon reflexes : Normal Knee Jerk. Normal Ankle Jerk . Vertebral body tenderness to palpation over Lumbar Facet Loading Test positive Straight Leg Raise: positive at 30 degrees right side/ left side Gaenslen's Test positive Sacral spine : Severe tenderness over the Sacroiliac joint: right side / left side Range of motion: Flexion of the lumbar spine <60 degrees Range of motion: Extension of the lumbar spine <20 degrees Gaenslen's Test positive Daniel test: positive right side / left side Thigh Thrust Test Sacral Thrust Test Assessment and plan: Chronic low back pain secondary to lumbar degenerative disc disease, spondylosis with facet arthropathy without myelopathy Pt exhibits superior pain relief w prior RFA procedure. She will manage residual , provoked pain home mgmt modalities and may return to this clinic on an as needed basis. All patient questions answered I have spent less than 30 minutes on patient care today. Dr Grace was available by phone for the evaluation of this patient. The time was used to review the medical records including relevant urine studies and Prescription history (MAPs), review of the available imaging, evaluation and examination of the patient, coordination of care with the medical staff and if applicable referring physicians, as well as creation of the medical record PQRS Narrative: Smoking Status Never smoker Home Medications: Ambulatory Orders Butalb/Asprin/Caff 50-325-40Mg [Fiorinal 50-325-40 MG] 1 - 2 cap PO Q4HR PRN 07/13/16 Cholecalciferol [Vitamin D3] 2,000 unit PO DAILY 07/13/16 DULoxetine HCL [Cymbalta] 60 mg PO BID 07/13/16 Omeprazole [PriLOSEC] 20 mg PO AC-BRKFST 07/13/16 [id number]-Kryq-Mvnd [phone] [Excedrin] 2 each PO Q4HR PRN 09/06/17 ARIPiprazole 5 mg PO HS 03/07/20 Amitriptyline HCl 50 mg PO HS 03/07/20 Aspirin [Adult Low Dose Aspirin EC] 81 mg PO DAILY 03/07/20 Celecoxib [CeleBREX] 200 mg PO BID 03/07/20 Multivitamin [Once Daily] 1 each PO DAILY 03/07/20 Cannabidiol (Cbd) [Epidiolex] 1 dose TOPICAL DAILY PRN 12/11/20 HYDROcodone/APAP 5-325MG [[place] 5-325] 1 tab PO HS 12/11/20 Calcium Carbonate [Calcium] 600 mg PO DAILY 01/07/21 Controlled Substance Measures - Controlled Substance Measures Is patient prescribed a controlled substance at discharge?: No
== END ==
LOC: PNWHC3 12:03
PROVIDERS: ATTEND Specialist
DX: M47.816 Spondylosis without myelopathy or radiculopathy, lumbar region (principal); M51.36 Other intervertebral disc degeneration, lumbar region; G89.29 Other chronic pain; Z79.82 Long term (current) use of aspirin; Z88.1 Allergy status to other antibiotic agents; Z88.8 Allergy status to other drugs, medicaments and biological substances; Z88.6 Allergy status to analgesic agent; Z88.5 Allergy status to narcotic agent
CPT/HCPCS: 99211

== ENCOUNTER → 2022-12-14 | Outpatient (CLI) | payer MEDICARE, OTHER ==
[2022-12-14 11:06] VITALS: BP 117/79; PULSE 101; RESP 15; TEMP 97.9
--- NOTE | 2022-12-14 14:19 | P.PAINPG ---
PQRS Measure Charge Sheet Comment: A 81 yr old female with a history of severe and chronic LBP x 10 yrs secondary to lumbar DDD and spondylosis with facet arthropathy without myelopathy presents today for evaluation. Pt underwent a BL RFA of the L3-L4 & L5-S1 in Mar 2022 where she admits she experienced 80% pain relief x 6 mo s/p procedure. Pain level is currently at /10 in intensity, constant, localized in the lower lumbar spine, achy in character w shooting towards the BLEs. Pain is provoked by standing/ walking for periods of 25 min or more. Pain is alleviated with heat, meds ([place]), reclining and laying supine. Oswestry axial pain score of 9. Interventional pain procedures completed include BL RFA L3-4 & L5-S1 (Mar 2022) Patient is currently on [place] Patient denies any side effects of the medication(s), denies excessive drowsiness or sleepiness, denies suicidal ideation and reports that the current pain medication is helping to control the pain and improve activities of daily living. Patient denies any motor or sensory deficits. Patient denies any fever or night sweats, denies any change in the bowel movements or urination. Physical Examination: -Constitutional: Cooperative. Not in acute distress . - Neurologic: Cranial nerve II to XII intact. No focal neurological deficits. - Psychatric: Alert & oriented x 3. Matching mood & appropriate affect. Judgment and insight intact. - Musculoskeletal: Cervical spine: Muscle bulk/ tone/ strength in the bilateral upper extremities normal Vertebral body tenderness to palpation over Spurling test positive Distraction test positive Facet loading test positive Thoracic spine Muscle bulk / tone/ strength in the bilateral paraspinal muscles normal Vertebral body tender to palpation over Facet loading test positive Lumbar spine: Motor bulk/ tone/ strength lower extremities , thigh and legs : 5/5 Deep tendon reflexes : Normal Knee Jerk. Normal Ankle Jerk . Vertebral body tenderness to palpation over Lumbar Facet Loading Test positive over BL L3-L4 & L5-S1 Straight Leg Raise: positive at 30 degrees right side/ left side Gaenslen's Test positive Sacral spine : Severe tenderness over the Sacroiliac joint: right side / left side Range of motion: Flexion of the lumbar spine <60 degrees Range of motion: Extension of the lumbar spine <20 degrees Gaenslen's Test positive Daniel test: positive right side / left side Thigh Thrust Test Sacral Thrust Test Assessment and plan: Chronic low back pain secondary to lumbar degenerative disc disease, spondylosis with facet arthropathy without myelopathy Recommendation of BL RFA L3-L4, L5-S1. Pt exhibited substantial pain relief w prior RFA procedure from Mar 2022. Risks, benefits of procedure discussed and pt verbalized understanding. Protocol for discontinuation/ continuation of medications surrounding procedure discussed. Pt acknowledged understanding. All patient questions answered I have spent less than 30 minutes on patient care today. Dr Grace was available by phone for the evaluation of this patient. The time was used to review the medical records including relevant urine studies and Prescription history (MAPs), review of the available imaging, evaluation and examination of the patient, coordination of care with the medical staff and if applicable referring physicians, as well as creation of the medical record PQRS Narrative: Smoking Status Never smoker Home Medications: Ambulatory Orders Butalb/Asprin/Caff 50-325-40Mg [Fiorinal 50-325-40 MG] 1 - 2 cap PO Q4HR PRN 07/13/16 Cholecalciferol [Vitamin D3] 2,000 unit PO DAILY 07/13/16 DULoxetine HCL [Cymbalta] 60 mg PO BID 07/13/16 Omeprazole [PriLOSEC] 20 mg PO AC-BRKFST 07/13/16 Dsyxwop-Nhln-Lijm [phone] [Excedrin] 2 each PO Q4HR PRN 09/06/17 ARIPiprazole 5 mg PO HS 03/07/20 Amitriptyline HCl 50 mg PO HS 03/07/20 Aspirin [Adult Low Dose Aspirin EC] 81 mg PO DAILY 03/07/20 Celecoxib [CeleBREX] 200 mg PO BID 03/07/20 Multivitamin [Once Daily] 1 each PO DAILY 03/07/20 Cannabidiol (Cbd) [Epidiolex] 1 dose TOPICAL DAILY PRN 12/11/20 HYDROcodone/APAP 5-325MG [[place] 5-325] 1 tab PO HS 12/11/20 Calcium Carbonate [Calcium] 600 mg PO DAILY 01/07/21 Controlled Substance Measures - Controlled Substance Measures Is patient prescribed a controlled substance at discharge?: No
== END ==
LOC: PNWHC3 10:37
PROVIDERS: ATTEND Specialist
DX: M51.37 Other intervertebral disc degeneration, lumbosacral region (principal); M47.817 Spondylosis without myelopathy or radiculopathy, lumbosacral region; M48.062 Spinal stenosis, lumbar region with neurogenic claudication; G89.29 Other chronic pain; Z88.8 Allergy status to other drugs, medicaments and biological substances; Z79.82 Long term (current) use of aspirin
CPT/HCPCS: 99211

== ENCOUNTER → 2023-01-01 | Day surgery (SDC) | payer MEDICARE ==
[2022-12-31 16:00] VITALS: BMI 28.1
[~2023-01-01] MED LIST changes: +IV FLUID CONTINUATION 1,000 ML IV ONE; -LIDOCAINE 1% (10MG/ML) FOR IV START INTRADERMA PRN; +MIDAZOLAM 2 MG/2 ML VIAL ONE; +ROPIVACAINE 5MG/ML 20ML VIAL ONE; +fentaNYL (PF) 50 MCG/ML 2 ML AMP ONE; +methylPREDNISolone ACETATE 40 MG/ML 1 ML VIAL ONE
[2023-01-01 06:48] VITALS: RESP 16; TEMP 98.1
--- NOTE | 2023-01-01 07:36 | P.PCN ---
Date of Procedure: 01/01/23 Procedure(s) Performed: PREOPERATIVE DIAGNOSIS: 1-Lumbar Spondylosis with Facet Arthropathy without myelopathy. POSTOPERATIVE DIAGNOSIS: 1- Lumbar Spondylosis with Facet Arthropathy without myelopathy. PROCEDURES : bilatereal Radiofrequency thermocoagulation,L2 , L3 , L5 medial branch, with fluoroscopic guidance (fluoroscopy images available in the radiology department) ( to denervate the facet joint at Bilateral L3-4 , L5- S1 levels ). ANESTHESIA: monitered anesthesia care as per anesthesia department . EBL: Minimal PROCEDURE INDICATION: The patient with low back pain secondary to lumbar facet arthropathy who had more than 50% relief of her pain with previous diagnostic lumbar medial branch block with bupivacaine. PROCEDURE DESCRIPTION / TECHNIQUE: The patient was seen and identified in the preoperative area. Risks, benefits, complications, including but not limited to risk of infection ,bleeding , allergic reactions to the medications and no complete pain releife , and alternatives were discussed with the patient, the patient agreed to proceed with the procedure and signed the consent. IV was started. Vital signs remained stable throughout the procedure. Patient was taken to the OR and time out was completed. The patient was placed in the prone position on the procedure table. The lumber area was prepped and draped in the usual sterile fashion. . Vital signs were closely monitored during the procedure .IV sedation was used during the procedure to decrease patients anxiety. Using AP and then oblique fluoroscopy, the ``eye of the [place] dog corresponding to the connection between the superior and transverse articular processes of right L2 ,L3, L4, and L5 were identified, marked, and localized with 1% lidocaine. Subsequently, a 18 -hr radiofrequency cannula with a 10-mm active tip was advanced guided by fluoroscopy to each of the``eyes of the [place] dog at right L2, L3, and L5. Each site then underwent sensory testing at 50 Hz and 0 to 1 volt and motor testing at 2.5 Hz and 0 to 3 volt with local stimulation, but no radicular symptoms down the legs. Thereafter each sites underwent radiofrequency thermocoagulation at 80 degrees celsius for 90 seconds after injecting 0.5 ml of PF Ropivacaine 1ml, then after the thermocoagulation done , 1 ml of the block solution containing Depo-Medrol 20 mg and 3 ml of Ropivacaine 0.5% was injected at the right L2 , L3 , and L5 , levels after negative aspiration of CSF and blood and with no paresthesias. Cannulas were retracted while injecting lidocaine 1% until the needle is out. Then the exact same procedure was done for the left side at L2, L3 and L5 At the end of the procedure, the skin was cleansed and bandages were applied. COMPLICATIONS: No acute complications. DISPOSITION / PLANS: The patient was placed in a supine position and carmona sferred to the recovery area in a stable condition for observation and was discharged from the recovery room after meeting discharge criteria. Home discharge instructions given to the patient by the staff. The patient was reexamined prior to discharge. The patient will schedule a follow up in the clinic in 2-4 weeks. note= patient had fusion at L4-L5 for this reason the procedure done at L3 4 an d L5-S1(above and below the fusion level )
[2023-01-01 08:13] VITALS: BP 117/60; PULSE 88
--- NOTE | 2023-01-01 13:25 | FL ---
Intraoperative/procedural fluoroscopic services were provided. Total fluoroscopy time is 49 seconds w ith a total of 6 submitted images to PACS. Please see the operative/procedural note for further detai ls. DAP: [id number] mGym2
== END ==
LOC: ORPAIN 06:15
PROVIDERS: ATTEND Specialist
DX: M47.816 Spondylosis without myelopathy or radiculopathy, lumbar region (principal); I25.10 Atherosclerotic heart disease of native coronary artery without angina pectoris; E78.5 Hyperlipidemia, unspecified; J45.909 Unspecified asthma, uncomplicated; K21.9 Gastro-esophageal reflux disease without esophagitis; M79.7 Fibromyalgia; Z86.73 Personal history of transient ischemic attack (TIA), and cerebral infarction without residual deficits; Z79.82 Long term (current) use of aspirin; Z79.1 Long term (current) use of non-steroidal anti-inflammatories (NSAID); Z79.891 Long term (current) use of opiate analgesic; Z79.899 Other long term (current) drug therapy
CPT/HCPCS: 64635; 64636 ×2; 99152; 99153; J2250; J1030; J3010; J2795

== ENCOUNTER → 2023-01-25 | Outpatient (CLI) | payer MEDICARE ==
[2023-01-25 11:48] VITALS: BP 132/80; PULSE 66; RESP 15; TEMP 98.2
--- NOTE | 2023-01-25 14:39 | P.PAINPG ---
PQRS Measure Charge Sheet Comment: A 81 yr old female with a history of severe and chronic LBP x 10 yrs secondary to lumbar DDD and spondylosis with facet arthropathy without myelopathy presents today for evaluation s/p BL RFA L3-L4, L5-S1. Pt states she experienced 100% pain relief s/p procedure. Pain level is currently at 1 /10 in intensity, constant, localized in the lower lumbar spine, achy in character w shooting towards the BLEs. Pain is provoked by standing/ walking for periods of 25 min or more. Pain is alleviated with heat, medications, topical, reclining and laying supine. Oswestry axial pain score of 9. Interventional pain procedures completed include BL RFA L3-4 & L5-S1 (Mar 2022, Dec 2022) Patient is currently on [place], Celebrex, Cymbalta, Bio Freeze topical Patient denies any side effects of the medication(s), denies excessive drowsiness or sleepiness, denies suicidal ideation and reports that the current pain medication is helping to control the pain and improve activities of daily living. Patient denies any motor or sensory deficits. Patient denies any fever or night sweats, denies any change in the bowel movements or urination. Physical Examination: -Constitutional: Cooperative. Not in acute distress . - Neurologic: Cranial nerve II to XII intact. No focal neurological deficits. - Psychatric: Alert & oriented x 3. Matching mood & appropriate affect. Judgment and insight intact. - Musculoskeletal: Cervical spine: Muscle bulk/ tone/ strength in the bilateral upper extremities normal Vertebral body tenderness to palpation over Spurling test positive Distraction test positive Facet loading test positive Thoracic spine Muscle bulk / tone/ strength in the bilateral paraspinal muscles normal Vertebral body tender to palpation over Facet loading test positive Lumbar spine: Motor bulk/ tone/ strength lower extremities , thigh and legs : 5/5 Deep tendon reflexes : Normal Knee Jerk. Normal Ankle Jerk . Vertebral body tenderness to palpation over Lumbar Facet Loading Test positive over BL L3-L4 & L5-S1 Straight Leg Raise: positive at 30 degrees right side/ left side Gaenslen's Test positive Sacral spine : Severe tenderness over the Sacroiliac joint: right side / left side Range of motion: Flexion of the lumbar spine <60 degrees Range of motion: Extension of the lumbar spine <20 degrees Gaenslen's Test positive Daniel test: positive right side / left side Thigh Thrust Test Sacral Thrust Test Assessment and plan: Chronic low back pain secondary to lumbar degenerative disc disease, spondylosis with facet arthropathy without myelopathy Will manage residual pain on her own and may RTC on an as needed basis. All patient questions answered I have spent less than 30 minutes on patient care today. Dr Grace was available by phone for the evaluation of this patient. The time was used to review the medical records including relevant urine studies and Prescription history (MAPs), review of the available imaging, evaluation and examination of the patient, coordination of care with the medical staff and if applicable referring physicians, as well as creation of the medical record PQRS Narrative: Smoking Status Never smoker Home Medications: Ambulatory Orders Butalb/Asprin/Caff 50-325-40Mg [Fiorinal 50-325-40 MG] 1 - 2 cap PO Q4HR PRN 07/13/16 Cholecalciferol [Vitamin D3] 2,000 unit PO DAILY 07/13/16 DULoxetine HCL [Cymbalta] 60 mg PO BID 07/13/16 Omeprazole [PriLOSEC] 20 mg PO AC-BRKFST 07/13/16 ARIPiprazole 5 mg PO HS 03/07/20 Amitriptyline HCl 50 mg PO HS 03/07/20 Aspirin [Adult Low Dose Aspirin EC] 81 mg PO DAILY 03/07/20 Celecoxib [CeleBREX] 200 mg PO BID 03/07/20 Multivitamin [Once Daily] 1 each PO DAILY 03/07/20 Cannabidiol (Cbd) [Epidiolex] 1 dose TOPICAL DAILY PRN 12/11/20 HYDROcodone/APAP 5-325MG [[place] 5-325] 1 tab PO HS 12/11/20 Calcium Carbonate [Calcium] 600 mg PO DAILY 01/07/21 Atorvastatin [Lipitor] 10 mg PO DAILY 01/01/23 Controlled Substance Measures - Controlled Substance Measures Is patient prescribed a controlled substance at discharge?: No
== END ==
LOC: PNWHC3 10:56
PROVIDERS: ATTEND Specialist
DX: M51.37 Other intervertebral disc degeneration, lumbosacral region (principal); M47.817 Spondylosis without myelopathy or radiculopathy, lumbosacral region; G89.29 Other chronic pain; Z79.82 Long term (current) use of aspirin; Z88.1 Allergy status to other antibiotic agents; Z88.8 Allergy status to other drugs, medicaments and biological substances
CPT/HCPCS: 99211

== ENCOUNTER 2024-01-10 10:23 | Emergency (ER) | payer MEDICARE ==
[2024-01-10 10:43] VITALS: TEMP 98.4
[2024-01-10 11:14] LABS: Basophils % (A) 0 %; Eosinophils # (A) 0.1 k/uL (0-0.7); Eosinophils % (A) 2 %; HCT 39.5 % (34.0-46.0); Lymphocytes # (A) 1.3 k/uL (1.0-4.8); Lymphocytes % (A) 22 %; MCH 29.8 pg (25.0-35.0); MCV 90.5 fL (80.0-100.0); Mean Platelet Volume 7.4; Monocytes # (A) 0.2 k/uL (0-1.0); Monocytes % (A) 4 %; Neutrophils # (A) 4.1 k/uL (1.3-7.7); Neutrophils % (A) 70 %; Platelet Count 276 k/uL (150-450); RBC 4.37 m/uL (3.80-5.40); RDW 13.5 % (11.5-15.5); WBC 5.8 k/uL (3.8-10.6)
[2024-01-10 11:23] LABS: Partial Thromboplastin Time 24.1 sec (22.0-30.0); Prothrombin Time 10.6 sec (10.0-12.5)
[2024-01-10 11:34] LABS: ALT 19 U/L (4-34); AST 27 U/L (14-36); African American GFR (CKD) 67 (>60 ml/min/1.73 sqM); Albumin 4.4 g/dL (3.5-5.0); Alkaline Phosphatase 80 U/L (38-126); Anion Gap 2 mmol/L; Blood Urea Nitrogen 23 mg/dL (7-17); Calcium 9.8 mg/dL (8.4-10.2); Carbon Dioxide 25 mmol/L (22-30); Chloride 108 mmol/L (98-107); Glucose 90 mg/dL (74-99); Non-African American GFR(CKD) 58 (>60 ml/min/1.73 sqM); Potassium 4.7 mmol/L (3.5-5.1); Sodium 135 mmol/L (137-145); Total Bilirubin 0.7 mg/dL (0.2-1.3); Total Protein 6.4 g/dL (6.3-8.2)
--- NOTE | 2024-01-10 12:05 | XR ---
EXAMINATION TYPE: XR chest 2V DATE OF EXAM: 01/10/2024 11:52 AM CLINICAL INDICATION: Female, 83 years old with history of Chest Pain; [facility] COMPARISON: Chest radiographs from 05/09/2010 TECHNIQUE: XR chest 2V Frontal view of the chest. FINDINGS: Lungs/Pleura: There is no evidence of pleural effusion, focal consolidation, or pneumothorax. Pulmonary vascularity: Unremarkable. Heart/mediastinum: Cardiomediastinal silhouette is unremarkable. Atherosclerotic calcifications are seen in the aorta. Musculoskeletal: No acute osseous pathology. Other findings: Bilateral breast implants with capsular calcifications. IMPRESSION: No acute cardiopulmonary disease/process. [facility], , 01/10/2024 12:02 PM
--- NOTE | 2024-01-10 13:12 | ED ---
General Adult HPI - General Chief complaint: Chest Pain Stated complaint: chest pain Time Seen by Provider: 01/10/24 12:17 Source: patient Mode of arrival: ambulatory Limitations: no limitations - History of Present Illness Initial comments: Dictation was produced using [employer] dictation software. please excuse any grammatical, word or spelling errors. Chief Complaint: 83-year-old female presents emergency department with sharp chest pain History of Present Illness: Patient is a 83-year-old female denies any history of cardiac disease. States that she earlier this morning had some sharp chest pain to her left lower chest radiating to her left jaw. Patient denies any cardiac history. States that she has history of dyslipidemia. States that her pain is significantly improved since being in the ER. No associate diaphoresis or nausea. The ROS documented in this emergency department record has been reviewed and confirmed by me. Those systems with pertinent positive or negative responses have been documented in the HPI. All other systems are other negative and/or noncontributory. - Related Data Home Medications Medication Instructions Recorded Confirmed Butalb/Asprin/Caff 50-325-40Mg 1 - 2 cap PO Q4HR PRN 07/13/16 01/01/23 [Fiorinal 50-325-40 MG] Cholecalciferol [Vitamin D3] 2,000 unit PO DAILY 07/13/16 01/01/23 DULoxetine HCL [Cymbalta] 60 mg PO BID 07/13/16 01/01/23 Omeprazole [PriLOSEC] 20 mg PO AC-BRKFST 07/13/16 01/01/23 ARIPiprazole 5 mg PO HS 03/07/20 01/01/23 Amitriptyline HCl 50 mg PO HS 03/07/20 01/01/23 Aspirin [Adult Low Dose Aspirin EC] 81 mg PO DAILY 03/07/20 12/31/22 Celecoxib [CeleBREX] 200 mg PO BID 03/07/20 12/31/22 Multivitamin [Once Daily] 1 each PO DAILY 03/07/20 01/01/23 Cannabidiol (Cbd) [Epidiolex] 1 dose TOPICAL DAILY PRN 12/11/20 01/01/23 HYDROcodone/APAP 5-325MG [[place] 1 tab PO HS 12/11/20 01/01/23 5-325] Calcium Carbonate [Calcium] 600 mg PO DAILY 01/07/21 01/01/23 Atorvastatin [Lipitor] 10 mg PO DAILY 01/01/23 01/01/23 Allergies Allergy/AdvReac Type Severity Reaction Status Date / Time clarithromycin [From Biaxin] Allergy Rash/Hives Verified 01/10/24 10:43 eletriptan [From Relpax] Allergy Rash/Hives Verified 01/10/24 10:43 gabapentin [From Neurontin] Allergy Hallucinati Verified 01/10/24 10:43 ons meclofenamic acid Allergy Rash/Hives Verified 01/10/24 10:43 [From Meclomen] butorphanol [From Stadol] AdvReac elevated Verified 01/10/24 10:43 blood pressure pregabalin [From Lyrica] AdvReac worsened Verified 01/10/24 10:43 pain ropinirole [From Requip] AdvReac worsened Verified 01/10/24 10:43 pain Review of Systems ROS Statement: Those systems with pertinent positive or pertinent negative responses have been documented in the HPI. ROS Other: All systems not noted in ROS Statement are negative. Past Medical History Past Medical History: Asthma, Cancer, Chest Pain / Angina, CVA/TIA, Eye Disorde r, Fibromyalgia, GERD/Reflux, Hyperlipidemia, Osteoarthritis (OA) Additional Past Medical History / Comment(s): hx esophageal ulcer, migraine, TIA's-no residual effects, "exertion asthma", hiatal hernia, osteoporosis, lower back pain, skin cancer, double vision History of Any Multi-Drug Resistant Organisms: None Reported Past Surgical History: Appendectomy, Back Surgery, Breast Surgery, Cholecystectomy, Hysterectomy, Joint Replacement, Orthopedic Surgery Additional Past Surgical History / Comment(s): heel spurs, back fusion, pain procedures, tendon release left wrist, several breast biopsies, breast augmentation. skin cancer removed from face, spinal fusion, jaw surgically broken, myles cataracts, rt knee replacement Past Anesthesia/Blood Transfusion Reactions: Postoperative Nausea & Vomiting (PONV) Additional Past Anesthesia/Blood Transfusion Reaction / Comment(s): one episode of n/v Past Psychological History: Anxiety Smoking Status: Never smoker Past Alcohol Use History: Rare Past Drug Use History: None Reported - Past Family History Mother Family Medical History: CVA/TIA Sister(s) Family Medical History: Cancer General Exam - General Exam Comments Initial Comments: PHYSICAL EXAM: General Impression: Alert and oriented x3, not in acute distress HEENT: Normocephalic atraumatic, extra-ocular movements intact, pupils equal and reactive to light bilaterally, mucous membranes moist. Cardiovascular: Heart regular rate and rhythm Chest: Able to complete full sentences, no retractions, no tachypnea Abdomen: abdomen soft, non-tender, non-distended, no organomegaly Musculoskeletal: Pulses present and equal in all extremities, no peripheral edema Motor: no focal deficits noted Neurological: CN II-XII grossly intact, no focal motor or sensory deficits noted Skin: Intact with no visualized rashes Psych: Normal affect and mood Limitations: no limitations Course Vital Signs 01/10/24 01/10/24 01/10/24 10:40 12:29 15:31 Temperature 98.4 F Pulse Rate 92 85 84 Respiratory 18 16 16 Rate Blood Pressure 163/85 141/91 140/92 O2 Sat by Pulse 97 95 95 Oximetry EKG Findings - EKG Comments: EKG Findings:: My EKG interpretation: Ventricular rate 117, sinus tachycardia, period of 191, QRS 81, QTc 381. No [place] prolongation, no QTC prolongation, no ST or T-wave changes noted. Overall this EKG is nonspecific Medical Decision Making - Medical Decision Making Was pt. sent in by a medical professional or institution (, PA, GENERATOR WORKER, urgent care, hospital, or prison...) When possible be specific @ -No Did you speak to anyone other than the patient for history (EMS, parent, family, police, friend...)? What history was obtained from this source @ -No Did you review nursing and triage notes (agree or disagree)? Why? @ -I reviewed and agree with nursing and triage notes Were old charts reviewed (outside hosp., previous admission, EMS record, old EKG, old radiological studies, urgent care reports/EKG's, prison records)? Report findings @ -No old charts were reviewed Differential Diagnosis (chest pain, altered mental status, abdominal pain women, abdominal pain men, vaginal bleeding, musculoskeletal, weakness, fever, dyspnea, syncope, headache, dizziness, GI bleed, back pain, seizure, CVA, palpatations, mental health)? @ -Differential Chest Pain: Stable Angina, Unstable Angina, STEMI, NSTEMI Aortic Dissection, Pneumothorax, Musculoskeletal, Esophageal Spasm GERD, Cholecystitis, Pancreatitis, Zoster, this is not meant to be an all-inclusive list. EKG interpreted by me (3pts min.). @ -See above X-rays interpreted by me (1pt min.). @ -Chest x-ray is nonacute CT interpreted by me (1pt min.). @ -None done U/S interpreted by me (1pt. min.). @ -None done What testing was considered but not performed or refused? (CT, X-rays, U/S, labs)? Why? @ -None What meds were considered but not given or refused? Why? @ -None Was smoking cessation discussed for >3mins.? @ -No Were there social determinants of health that impacted care today? How? (Homelessness, low income, unemployed, alcoholism, drug addiction, transportation, low edu. Level, literacy, decrease access to med. care, long-term, rehab)? @ -No Was there de-escalation of care discussed even if they declined (Discuss DNR or withdrawal of care, Hospice)? DNR status @ -No What co-morbidities impacted this encounter? (DM, HTN, Smoking, COPD, CAD, Cancer, CVA, ARF, Chemo, Hep., AIDS, mental health diagnosis, sleep apnea, morbid obesity)? @ -History of dyslipidemia Was patient admitted / discharged? Hospital course, mention meds given and route, prescriptions, significant lab abnormalities, going to OR and other pertinent info. @ -83-year-old female with atypical chest pain typical features. Patient does have some risk factors. Heart score of 3. Vital signs are stable. Laboratory evaluation obtained. Labs are within acceptable limits. D-dimer is negative. Serial troponins are negative. Disposition options were discussed. She was offered observation admission for cardiology consultation. She refused and would like to be discharged advised follow-up with primary care doctor. Return precautions discussed. Patient given aspirin. Patient reevaluated bedside at 4:00 PM stable medical addition. She has no chest symptoms whatsoever. Did you discuss the management of the patient with other professionals (professionals i.e. , PA, GENERATOR WORKER, lab, RT, psych nurse, social worker school, conservation scientist, teacher, diplomatic officer, wrapper caser)? Give summary @ -No Was critical care preformed (if so, how long)? @ -No Undiagnosed new problem with uncertain prognosis? @ -No Drug Therapy requiring intensive monitoring for toxicity (Heparin, Nitro, Insulin, Cardizem)? @ -No Were any procedures done? @ -No Diagnosis/symptom? Acute, or Chronic, or Acute on Chronic? Uncomplicated (without systemic symptoms) or Complicated (systemic symptoms)? @ -Atypical chest pain typical features Side effects of treatment? @ -No Exacerbation, Progression, or Severe Exacerbation? @ -No Poses a threat to life or bodily function? How? (Chest pain, [place], [place], pneumonia, PE, COPD, DKA, ARF, appy, cholecystitis, CVA, Diverticulitis, Homicidal, Suicidal, threat to staff... and all critical care pts) @ -yes - Lab Data Result diagrams: 01/10/24 10:52 01/10/24 10:52 Lab Results 01/10/24 01/10/24 01/10/24 Range/Units 10:52 10:52 10:52 WBC 5.8 (3.8-10.6) k/uL RBC 4.37 (3.80-5.40) m/uL Hgb 13.0 (11.4-16.0) gm/dL Hct 39.5 (34.0-46.0) % MCV 90.5 (80.0-100.0) fL MCH 29.8 (25.0-35.0) pg MCHC 33.0 (31.0-37.0) g/dL RDW 13.5 (11.5-15.5) % Plt Count 276 (150-450) k/uL MPV 7.4 Neutrophils % 70 % Lymphocytes % 22 % Monocytes % 4 % Eosinophils % 2 % Basophils % 0 % Neutrophils # 4.1 (1.3-7.7) k/uL Lymphocytes # 1.3 (1.0-4.8) k/uL Monocytes # 0.2 (0-1.0) k/uL Eosinophils # 0.1 (0-0.7) k/uL Basophils # 0.0 (0-0.2) k/uL PT 10.6 (10.0-12.5) sec INR 1.0 (<1.2) APTT 24.1 (22.0-30.0) sec D-Dimer (<0.60) mg/L FEU Sodium 135 L (137-145) mmol/L Potassium 4.7 (3.5-5.1) mmol/L Chloride 108 H (98-107) mmol/L Carbon Dioxide 25 (22-30) mmol/L Anion Gap 2 mmol/L BUN 23 H (7-17) mg/dL Creatinine 0.93 (0.52-1.04) mg/dL Est GFR (CKD-EPI)AfAm 67 (>60 ml/min/1.73 sqM) Est GFR (CKD-EPI)NonAf 58 (>60 ml/min/1.73 sqM) Glucose 90 (74-99) mg/dL Calcium 9.8 (8.4-10.2) mg/dL Magnesium 2.0 (1.6-2.3) mg/dL Total Bilirubin 0.7 (0.2-1.3) mg/dL AST 27 (14-36) U/L ALT 19 (4-34) U/L Alkaline Phosphatase 80 (38-126) U/L Troponin I (0.000-0.034) ng/mL Total Protein 6.4 (6.3-8.2) g/dL Albumin 4.4 (3.5-5.0) g/dL 01/10/24 01/10/24 01/10/24 Range/Units 10:52 13:23 13:23 WBC (3.8-10.6) k/uL RBC (3.80-5.40) m/uL Hgb (11.4-16.0) gm/dL Hct (34.0-46.0) % MCV (80.0-100.0) fL MCH (25.0-35.0) pg MCHC (31.0-37.0) g/dL RDW (11.5-15.5) % Plt Count (150-450) k/uL MPV Neutrophils % % Lymphocytes % % Monocytes % % Eosinophils % % Basophils % % Neutrophils # (1.3-7.7) k/uL Lymphocytes # (1.0-4.8) k/uL Monocytes # (0-1.0) k/uL Eosinophils # (0-0.7) k/uL Basophils # (0-0.2) k/uL PT (10.0-12.5) sec INR (<1.2) APTT (22.0-30.0) sec D-Dimer 0.42 (<0.60) mg/L FEU Sodium (137-145) mmol/L Potassium (3.5-5.1) mmol/L Chloride (98-107) mmol/L Carbon Dioxide (22-30) mmol/L Anion Gap mmol/L BUN (7-17) mg/dL Creatinine (0.52-1.04) mg/dL Est GFR (CKD-EPI)AfAm (>60 ml/min/1.73 sqM) Est GFR (CKD-EPI)NonAf (>60 ml/min/1.73 sqM) Glucose (74-99) mg/dL Calcium (8.4-10.2) mg/dL Magnesium (1.6-2.3) mg/dL Total Bilirubin (0.2-1.3) mg/dL AST (14-36) U/L ALT (4-34) U/L Alkaline Phosphatase (38-126) U/L Troponin I <0.012 <0.012 (0.000-0.034) ng/mL Total Protein (6.3-8.2) g/dL Albumin (3.5-5.0) g/dL Disposition Clinical Impression: Chest pain Disposition: HOME SELF-CARE Condition: Good Instructions (If sedation given, give patient instructions): Chest Pain (ED) Is patient prescribed a controlled substance at d/c from ED?: No Referrals: Natasha Steele MD [Primary Care Provider] - 1-2 days Time of Disposition: 15:59
[2024-01-10] MEDS: ASPIRIN 81 MG PO STA (16:41)
[2024-01-10 16:46] VITALS: BP 149/94; PULSE 94; RESP 18
== END 2024-01-10 16:46 | disposition home or self-care (01) ==
LOC: EC 10:23
DX: R07.9 Chest pain, unspecified
CPT/HCPCS: 36415; 71046; 80053; 83735; 84484; 85025; 85379; 85610; 85730; 93005; 99285